=== PATIENT | female | born 1950 | race Caucasian/White ===

== ENCOUNTER → 2024-05-20 | Outpatient (CLI) | payer MEDICARE ==
[2024-05-20 10:34] LABS: ALKALINE PHOSPHATASE 103 U/L (46-116); BUN 17 mg/dl (9-23); CHLORIDE 109 mmol/L (98-107); POTASSIUM 4.4 mmol/L (3.4-5.1); SGPT/ALT 18 U/L (5-49); TOTAL PROTEIN 6.7 gm/dL (6.0-8.0)
== END | disposition home or self-care (01) ==
LOC: LAB 09:50
PROVIDERS: ATTEND Orthopaedic Surgery
DX: M79.672 Pain in left foot (principal); R53.83 Other fatigue